=== PATIENT | female | born 1985 ===

== ENCOUNTER 2023-03-08 05:30 | Day surgery (SDC) | payer OTHER ==
[~2023-03-08] VITALS: Ht 165.1 cm; Wt 99.8 kg
== END 2023-03-08 14:15 | disposition home or self-care (01) ==
LOC: CIR.AMB 05:30
PROVIDERS: ATTEND Surgery Surgery of the Hand
DX: M67.843 Other specified disorders of tendon, right hand (principal); Z20.822 Contact with and (suspected) exposure to COVID-19